=== PATIENT | male | born 1970 | race Caucasian/White ===

== ENCOUNTER 2021-12-18 13:14 | Emergency (ER) | payer OTHER ==
[~2021-12-18] VITALS: Ht 180.3 cm; Wt 104.3 kg
[2021-12-18] MEDS ORDERED: CHLORTHALIDONE25 MG PO (13:30)
== END 2021-12-18 16:23 | disposition home or self-care (01) ==
LOC: ER 13:14
DX: S29.011A Strain of muscle and tendon of front wall of thorax, initial encounter (principal); X58.XXXA Exposure to other specified factors, initial encounter; Y93.9 Activity, unspecified; Y92.9 Unspecified place or not applicable